=== PATIENT | male | born 1985 | race Two or more races ===

== ENCOUNTER 2017-01-21 05:59 | Day surgery (SDC) | payer BC ==
[~2017-01-21] VITALS: Ht 175.3 cm; Wt 80.0 kg
[~2017-01-21 05:59] MED LIST: No meds per pt.
[2017-01-21] MEDS ORDERED: LACTATED RINGERS 1,000 ML IV SCH (06:18)
[2017-01-21 06:27] VITALS: BP 115/79
[2017-01-21] MEDS ORDERED: MIDAZOLAM 1 MG/ML, 2ML ONE (07:28)
[2017-01-21] MEDS ORDERED: FENTANYL PF 250 MCG/5ML ONE (07:29)
[2017-01-21] MEDS ORDERED: ROCURONIUM 10 MG/ML ONE (07:57)
[2017-01-21] MEDS ORDERED: PROPOFOL 10 MG/ML, 20ML ONE (07:57)
[2017-01-21] MEDS ORDERED: GLYCOPYRROLATE 0.2MG/1ML ONE (07:57)
[2017-01-21] MEDS ORDERED: NEOSTIGMINE 1 MG/ML, 10ML ONE (07:57)
[2017-01-21] MEDS ORDERED: ONDANSETRON 2MG/ML, 2ML IVPush PRN (08:00)
[2017-01-21] MEDS ORDERED: ACETAMINOPHEN 325 MG TABLET PO PRN (08:00)
[2017-01-21] MEDS ORDERED: PROMETHAZINE 25 MG/ML, 1ML IV PRN (08:00)
[2017-01-21] MEDS ORDERED: OXYcodone 5 MG/5 ML ORAL.SOL UDC PO PRN (08:00)
[2017-01-21] MEDS ORDERED: FENTANYL PF 100 MCG/2ML IV PRN (08:00)
[2017-01-21] MEDS ORDERED: METOCLOPRAMIDE 5 MG/ML, 2ML IV PRN (08:00)
[2017-01-21] MEDS ORDERED: HYDROmorphone 1 MG/ML, 1ML IV PRN (08:00)
[2017-01-21] MEDS ORDERED: BUPIVACAINE/PF-EPI 0.5% 1:200K ONE (13:58)
== END 2017-01-21 10:30 ==
LOC: OUT 05:59
PROVIDERS: ATTEND Surgery
DX: K61.1 Rectal abscess (principal); K60.4 Rectal fistula
CPT/HCPCS: 46020; 88304; J2250; J2704; J2710; J3010; J7120; J3490

== ENCOUNTER → 2017-07-15 | Outpatient (CLI) | payer BC ==
[~2017-07-15] MED LIST changes: +[UNRECOGNIZED DRUG - CODE] PO
[2017-07-15 15:29] LABS: BASOPHILS # (AUTO) 0.02 x10^3/uL (0-0.1); BASOPHILS % (AUTO) 0 % (0-1); EOSINOPHILS # (AUTO) 0.07 x10^3/uL (0-0.4); EOSINOPHILS % (AUTO) 1 % (1-7); LYMPHOCYTES # (AUTO) 1.88 x10^3/uL (1-3.4); LYMPHOCYTES % (AUTO) 30 % (22-44); MD NO; MEAN CORPUSCULAR HGB CONC 34.5 g/dL (33.2-36.2); MEAN CORPUSCULAR VOLUME 89.8 fL (81-97); MEAN PLATELET VOLUME 8.1 fL (7.4-10.4); MONOCYTES % (AUTO) 5 % (2-9); NEUTROPHILS # (AUTO) 3.92 x10^3/uL (1.8-6.8); NEUTROPHILS % (AUTO) 63 % (42-75); PLATELET COUNT 209 x10^3/uL (130-400); RED BLOOD COUNT 5.34 x10^6/uL (4.38-5.82); RED CELL DISTRIBUTION WIDTH 12.7 % (9.4-14.8)
[2017-07-15 15:38] LABS: CHLORIDE 104 mmol/L (98-107)
[2017-07-15 15:42] LABS: ANION GAP 7 mmol/L (5-15); CREATININE 1.01 mg/dL (0.7-1.3)
== END | disposition home or self-care (01) ==
LOC: STAR 14:00
PROVIDERS: ATTEND Surgery
DX: Z01.818 Encounter for other preprocedural examination (principal)
CPT/HCPCS: 36415; 80048; 85025

== ENCOUNTER 2017-07-22 06:26 | Day surgery (SDC) | payer BC ==
[~2017-07-22] VITALS: Ht 177.8 cm; Wt 84.8 kg
[2017-07-22 07:00] VITALS: BP 111/76
[2017-07-22] MEDS ORDERED: LACTATED RINGERS 1,000 ML IV SCH (07:04)
[2017-07-22] MEDS ORDERED: LIDOCAINE 1%, 2ML SQ PRN (07:30)
[2017-07-22] MEDS ORDERED: BUPIVACAINE LIPOSOME/PF INFIL ONE (08:00)
[2017-07-22] MEDS ORDERED: ONDANSETRON 2MG/ML, 2ML ONE (08:54)
[2017-07-22] MEDS ORDERED: DEXAMETHASONE 4 MG/ML, 1ML ONE (08:54)
[2017-07-22] MEDS ORDERED: ROCURONIUM 10 MG/ML,10ML ONE (08:54)
[2017-07-22] MEDS ORDERED: MIDAZOLAM 1 MG/ML, 2ML ONE (08:54)
[2017-07-22] MEDS ORDERED: FENTANYL PF 250 MCG/5ML ONE (08:54)
[2017-07-22] MEDS ORDERED: SUCCINYLCHOLINE 20 MG/ML, 10ML ONE (08:54)
[2017-07-22] MEDS ORDERED: PROPOFOL 10 MG/ML, 20ML ONE (08:54)
[2017-07-22] MEDS ORDERED: OXYcodone 5 MG/5 ML ORAL.SOL UDC PO PRN (09:30)
[2017-07-22] MEDS ORDERED: HYDROmorphone 1 MG/ML, 1ML IV PRN (09:30)
[2017-07-22] MEDS ORDERED: MEPERIDINE/PF 25MG/0.5ML IVPush PRN (09:30)
[2017-07-22] MEDS ORDERED: ONDANSETRON 2MG/ML, 2ML IVPush PRN (09:30)
[2017-07-22] MEDS ORDERED: HYDROcodone/APAP 7.5-325MG/15ML UDC PO PRN (09:30)
[2017-07-22] MEDS ORDERED: FENTANYL PF 100 MCG/2ML IV PRN (09:30)
[2017-07-22] MEDS ORDERED: ACETAMINOPHEN 325 MG TABLET PO PRN (09:30)
[2017-07-22] MEDS ORDERED: ACETAMINOPHEN 650 MG/20.3 ML UDC ONE (10:02)
[2017-07-22] MEDS ORDERED: OXYcodone 5 MG/5 ML ORAL.SOL UDC ONE (10:02)
[2017-07-22] MEDS ORDERED: KETOROLAC 30 MG/1 ML ONE (10:02)
[2017-07-22] MEDS ORDERED: KETOROLAC 30 MG/1 ML IVPush PRN (10:30)
[2017-07-22] MEDS ORDERED: FENTANYL PF 100 MCG/2ML ONE (10:32)
== END 2017-07-22 13:30 | disposition home or self-care (01) ==
LOC: OUT 06:26
PROVIDERS: ATTEND Surgery
DX: K60.3 Anal fistula (principal)
CPT/HCPCS: 46280; C1729; C9290; J0330; J1100; J1885; J2250; J2405; J2704; J3010; J3490; J7120; J0690; J2710